=== PATIENT | female | born 1990 | race Caucasian/White ===

== ENCOUNTER 2018-08-25 21:54 | Emergency (ER) | payer OTHER, SELFPAY ==
[2018-08-25 22:11] VITALS: BP 134/78
[2018-08-25] MEDS ORDERED: Sulfamethoxazole/Trimethoprim 800-160 MG Tab PO ONE (22:30)
--- NOTE | 2018-08-25 22:46 | EDM.PDOC ---
ED HPI GENERAL MEDICAL PROBLEM - General Chief Complaint: Genitourinary Problem Stated Complaint: POSSIBLE UTI Time Seen by Provider: 08/25/18 22:07 Source of Information: Reports: Patient, RN Notes Reviewed History Limitations: Reports: No Limitations - History of Present Illness INITIAL COMMENTS - FREE TEXT/NARRATIVE: The patient states that she developed suprapubic pain, as well as dysuria, urinary urgency, and urinary frequency yesterday, 08/24/2018. Initially her symptoms were mild, but became more severe today. She also noticed some gross hematuria about 2 hours ago. She denies any lower back or flank pain. No recent fever. No nausea, vomiting, constipation or diarrhea. The patient reports a similar symptoms about every 2 years since she was 17 years old, due to a UTI. The patient has not taken any uyof-gtz-sktxupa or home remedies to try to treat her symptoms. The patient does not have a PCP. 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 ED EXAM, RENAL/ - Physical Exam Exam: See Below Exam Limited By: No Limitations General Appearance: Alert, WD/WN, No Apparent Distress Eye Exam: Bilateral Eye: EOMI, Normal Inspection Ears: Normal External Exam, Hearing Grossly Normal Nose: Normal Inspection Throat/Mouth: Normal Inspection, Normal Lips, Normal Voice, No Airway Compromise Head: Atraumatic, Normocephalic Neck: Normal Inspection, Full Range of Motion Respiratory/Chest: No Respiratory Distress, Lungs Clear, Normal Breath Sounds, No Accessory Muscle Use Cardiovascular: Normal Peripheral Pulses, Regular Rate, Rhythm, No Edema, No Gallop, No JVD, No Murmur, No Rub GI/Abdominal: Normal Bowel Sounds, Soft, No Organomegaly, No Distention, No Abnormal Bruit, No Mass, Tender (Suprapubic region only. Nontender elsewhere.) (Female) Exam: Deferred Rectal (Female) Exam: Deferred Back Exam: Normal Inspection, Full Range of Motion. No: CVA Tenderness (L), CVA Tenderness (R) Extremities: Normal Inspection, Normal Range of Motion, No Pedal Edema, Normal Capillary Refill Neurological: Alert, Oriented, Normal Cognition, No Motor/Sensory Deficits Psychiatric: Normal Affect Skin Exam: Warm, Dry, Intact, Normal Color, No Rash Course - Vital Signs Last Recorded V/S: Last Vital Signs Temp 37.2 C 08/25/18 22:07 Pulse 90 08/25/18 22:07 Resp 20 08/25/18 22:07 BP 134/78 08/25/18 22:07 Pulse Ox 100 08/25/18 22:07 - Orders/Labs/Meds Orders: Active Orders 24 hr Category Date Time Status CULTURE URINE [RM] Stat Lab 08/25/18 22:29 Ordered Labs: Laboratory Tests 08/25/18 08/25/18 Range/Units 22:12 22:12 Urine Color Yellow (Yellow) Urine Appearance Turbid H (Clear) Urine pH 7.0 (5.0-8.0) Ur Specific [place] 1.020 (1.005-1.030) Urine Protein 2+ H (Negative) Urine Glucose (UA) Negative (Negative) Urine Ketones Trace H (Negative) Urine Occult Blood 3+ H (Negative) Urine Nitrite Negative (Negative) Urine Bilirubin Negative (Negative) Urine Urobilinogen 2.0 H (0.2-1.0) Ur Leukocyte Esterase 3+ H (Negative) Urine RBC >100 H (0-5) /hpf Urine WBC >100 H (0-5) /hpf Ur Epithelial Cells 5-10 H (0-5) /hpf Urine Bacteria Few (FEW) /hpf Urine Mucus Not seen (FEW) /hpf Urine HCG, Qual Negative (NEGATIVE) Meds: Medications Discontinued Medications Generic Name Dose Route Start Last Admin Trade Name Freq PRN Reason Stop Dose Admin Trimethoprim/Sulfamethoxazole 1 tab 02/11/19 22:30 Septra Ds PO 08/25/18 22:31 ONETIME ONE - Re-Assessments/Exams Free Text/Narrative Re-Assessment/Exam: 08/25/18 22:38 Test results discussed with the patient. The patient's urinalysis is consistent with a UTI. A urine culture has been ordered. The patient will be started on oral Bactrim, and I will prescribe a five-day course. I have recommended over- the-counter Azo to be taken in addition, as well as adequate hydration. I will refer her to the clinic for follow-up in about 3 days, to check on the urine culture results. Departure - Departure Time of Disposition: 22:39 Disposition: Home, Self-Care 01 Condition: Fair Clinical Impression: Cystitis - Discharge Information *PRESCRIPTION DRUG MONITORING PROGRAM REVIEWED*: Not Applicable *COPY OF PRESCRIPTION DRUG MONITORING REPORT IN PATIENT NESHA: Not Applicable Referrals: Seema Goodrich MD [Physician] - Additional Instructions: You were seen in the emergency room for painful urinary symptoms and lower abdominal pain since yesterday. Workup in the ER included a urinalysis and a urine test. Your urinalysis was consistent with a urinary tract infection. You are not . A sample of your urine was sent for culture. You have been started on the antibiotic Bactrim. A prescription for Bactrim has been sent to the [facility], [address] [facility]. Take one tablet every 12 hours, starting late tomorrow morning, 08/26/2018, as prescribed. Finish the entire prescription unless told otherwise by a doctor. In addition to Bactrim, you may also take the lfaj-[id number] urinary tract pain medicine called Azo. You may take a total of 6 doses of Azo - either 3 tablets a day for 2 days, or 2 tablets a day for 3 days - your choice. Be aware that Azo will turn your urine orange - this is normal. Stay adequately hydrated. It does not matter what kind of fluid you drink. Follow-up with Dr. Seema Goodrich or one of the other providers in the clinic this coming 08/29/2018, to check on the urine culture results, to make sure that you are on the correct antibiotic. If any other problems, please do not hesitate to return to the ER. - My Orders Last 24 Hours: My Active Orders 08/25/18 22:29 CULTURE URINE [RM] Stat - Assessment/Plan Last 24 Hours: My Active Orders 08/25/18 22:29 CULTURE URINE [] Stat
== END 2018-08-25 22:54 | disposition home or self-care (01) ==
LOC: JD.ED 21:54
DX: N30.90 Cystitis, unspecified without hematuria (principal)
CPT/HCPCS: 81001; 81025; 87086; 99283; A9270